=== PATIENT | female | born 1990 | race Caucasian/White ===

== ENCOUNTER 2022-07-16 14:55 | Emergency (ER) | payer BC, MEDICAID, OTHER | END 2022-07-16 17:00 | disposition home or self-care (01) | LOC: JD.ED 14:55 | DX: S91.201A Unspecified open wound of right great toe with damage to nail, initial encounter (principal); W20.8XXA Other cause of strike by thrown, projected or falling object, initial encounter | CPT/HCPCS: 73630-26-RT; 73630-RT; 99282; 99283 ==